=== PATIENT | male | born 1960 | race Caucasian/White ===

== ENCOUNTER 2019-02-03 23:03 | Emergency (ER) | payer MEDICAID, OTHER ==
[~2019-02-03] VITALS: Ht 190.5 cm; Wt 100.0 kg
[2019-02-04 05:55] VITALS: BP 132/60
== END 2019-02-04 05:56 | disposition home or self-care (01) ==
LOC: ER 23:03
DX: F10.129 Alcohol abuse with intoxication, unspecified (principal); Y90.9 Presence of alcohol in blood, level not specified; Z88.0 Allergy status to penicillin
CPT/HCPCS: 99283

== ENCOUNTER 2019-05-28 04:16 | Inpatient (IN) | payer MEDICARE, MEDICAID ==
[~2019-05-28] VITALS: Ht 190.5 cm; Wt 86.6 kg
[2019-05-28] MEDS ORDERED: SODIUM CHLORIDE 0.9% 1,000 ML IV ONE (05:00)
[2019-05-28 05:25] LABS: BASOPHILS % 1.1 % (0.0-2.0); EOSINOPHILS % 5.1 % (0.0-5.0); HEMATOCRIT. 37.7 % (42.0-52.0); HEMOGLOBIN. 12.4 g/dL (14.0-18.0); LYMPHOCYTES % 36.5 % (20.0-50.0); MEAN CORPUSCULAR HEMOGLOBIN 26.4 pg (28.0-32.0); MEAN CORPUSCULAR VOLUME 80.2 fL (80.0-94.0); MEAN PLATELET VOLUME 7.5 fl (7.4-10.4); MONOCYTES % 1.6 % (2.0-8.0); NEUTROPHILS % 55.7 % (40.0-76.0); PLATELET 308 x1000/uL (130-400); RED BLOOD CELL COUNT 4.71 mill/uL (4.7-6.1); RED CELL DISTRIBUTION WIDTH 18.6 % (11.6-14.6)
[2019-05-28 06:21] LABS: CHLORIDE 109 mEq/L (98-107)
[2019-05-28 06:26] LABS: ETHANOL BLOOD 143 mg/dL
[2019-05-28] MEDS ORDERED: MAGNESIUM 2 G PREMIX 50 ML IV ONE (07:15)
[2019-05-28] MEDS ORDERED: CALCIUM GLUCONATE 100MG/ML 10ML VIAL IV NR (07:15)
[2019-05-28] MEDS ORDERED: POTASSIUM CHLORIDE 20MEQ TABLET SR PO ONE (07:15)
[2019-05-28] MEDS ORDERED: SODIUM CHL 0.9% + KCL 20MEQ/L 1,000 ML IV SCH (07:15)
[2019-05-28] MEDS ORDERED: ONDANSETRON HCL 4MG/2ML INJ IV STA (07:56)
[2019-05-28] MEDS ORDERED: CLONIDINE 0.1MG TABLET PO PRN (16:45)
[2019-05-28] MEDS ORDERED: MVI, ADULT NO.1 10 ML, FOLIC ACID 1 MG, THIAMINE HCL 100 MG in SODIUM CHLORIDE 0.9% 1,0... IV SCH ×4 (16:45)
[2019-05-28] MEDS: ENOXAPARIN 40MG/0.4ML SYR SUBCUT SCH (18:13)
[2019-05-28 21:57] LABS: CLARITY URINE CLEAR (CLEAR); COLOR URINE YELLOW (YELLOW); KETONES URINE NEGATIVE (NEGATIVE); LEUKOCYTE ESTERASE URINE NEGATIVE (NEGATIVE); NITRITE URINE NEGATIVE (NEGATIVE); OCCULT BLOOD URINE NEGATIVE (NEGATIVE); PH URINE 5.5 (4.5-8.0); PROTEIN URINE 2+ (NEGATIVE); SPECIFIC GRAVITY URINE 1.023 (1.005-1.030); UROBILINOGEN URINE 0.2 E.U./dL (0.2-1.0)
[2019-05-28 22:13] LABS: *AMPHETAMINES SCREEN URINE NEGATIVE (NEGATIVE); *BARBITURATES SCREEN URINE NEGATIVE (NEGATIVE); *BENZODIAZEPINES SCREEN URINE NEGATIVE (NEGATIVE); *COCAINE SCREEN URINE NEGATIVE (NEGATIVE); METHADONE URINE SCREEN NEGATIVE (NEGATIVE); OPIATES URINE SCREEN PRESUMTIVE POSITIVE (NEGATIVE)
[2019-05-28 22:14] LABS: CANNABINOID URINE SCREEN NEGATIVE (NEGATIVE); PHENCYCLIDINE URINE SCREEN NEGATIVE (NEGATIVE)
[2019-05-29 06:51] LABS: BASOPHILS % 0.6 % (0.0-2.0); EOSINOPHILS % 6.2 % (0.0-5.0); HEMATOCRIT. 33.4 % (42.0-52.0); LYMPHOCYTES % 23.9 % (20.0-50.0); MEAN CORPUSCULAR HEMOGLOBIN 26.2 pg (28.0-32.0); MEAN CORPUSCULAR VOLUME 79.5 fL (80.0-94.0); MEAN PLATELET VOLUME 7.4 fl (7.4-10.4); MONOCYTES % 2.5 % (2.0-8.0); NEUTROPHILS % 66.8 % (40.0-76.0); PLATELET 181 x1000/uL (130-400); RED CELL DISTRIBUTION WIDTH 18.4 % (11.6-14.6)
[2019-05-29 07:00] LABS: CHLORIDE 100 mEq/L (98-107)
[2019-05-29 07:11] LABS: LDL CHOLESTEROL 86 mg/dL (5-100)
[2019-05-29 07:12] LABS: HDL CHOLESTEROL 77 mg/dL (40-59); T4 FREE 1.37 ng/dL (0.76-1.46)
[2019-05-29] MEDS: ACETAMINOPHEN 325MG TABLET PO PRN (11:51)
[2019-05-29] MEDS: ENOXAPARIN 40MG/0.4ML SYR SUBCUT SCH (17:59)
[2019-05-29] MEDS ORDERED: DIPHENHYDRAMINE 50MG/ML VIAL IV SCH (21:45)
[2019-05-30 06:25] LABS: BASOPHILS % 0.9 % (0.0-2.0); EOSINOPHILS % 5.9 % (0.0-5.0); HEMATOCRIT. 31.1 % (42.0-52.0); HEMOGLOBIN. 10.4 g/dL (14.0-18.0); LYMPHOCYTES % 28.2 % (20.0-50.0); MEAN CORPUSCULAR HEMOGLOBIN 26.5 pg (28.0-32.0); MEAN CORPUSCULAR VOLUME 78.9 fL (80.0-94.0); MEAN PLATELET VOLUME 7.4 fl (7.4-10.4); MONOCYTES % 3.7 % (2.0-8.0); NEUTROPHILS % 61.3 % (40.0-76.0); PLATELET 161 x1000/uL (130-400); RED BLOOD CELL COUNT 3.94 mill/uL (4.7-6.1); RED CELL DISTRIBUTION WIDTH 18.4 % (11.6-14.6)
[2019-05-30 06:29] LABS: CHLORIDE 101 mEq/L (98-107)
[2019-05-30] MEDS: ENOXAPARIN 40MG/0.4ML SYR SUBCUT SCH (18:28)
[2019-05-31 10:30] VITALS: BP 132/72
[2019-05-31 12:00] VITALS: BP_SYST 120; BP_SYST 125; BP_DIAS 70; BP_DIAS 77
[2019-05-31] MEDS: TAMSULOSIN HCL 0.4MG SR CAPSULE PO SCH (13:45)
[2019-05-31 16:00] VITALS: BP 120/70
[2019-05-31] MEDS: ENOXAPARIN 40MG/0.4ML SYR SUBCUT SCH (18:16)
[2019-05-31] MEDS: ONDANSETRON HCL 4MG/2ML INJ IV PRN (18:21)
[2019-05-31 20:00] VITALS: BP 121/81
[2019-05-31] MEDS: DIPHENHYDRAMINE 25MG CAPSULE PO PRN (21:32)
[2019-05-31] MEDS: ACETAMINOPHEN 325MG TABLET PO PRN (21:41)
[2019-06-01] VITALS: BP 146/78
[2019-06-01 04:00] VITALS: BP 134/79
[2019-06-01 08:10] VITALS: BP 113/68
[2019-06-01] MEDS: ONDANSETRON HCL 4MG/2ML INJ IV PRN (08:48)
[2019-06-01] MEDS: ACETAMINOPHEN 325MG TABLET PO PRN ×2 (08:55→19:02)
[2019-06-01] MEDS: TAMSULOSIN HCL 0.4MG SR CAPSULE PO SCH (08:57)
[2019-06-01 12:00] VITALS: BP 124/79
[2019-06-01 16:23] VITALS: BP 129/82
[2019-06-01] MEDS: ENOXAPARIN 40MG/0.4ML SYR SUBCUT SCH (18:00)
[2019-06-01 20:00] VITALS: BP 116/69
[2019-06-01] MEDS: DIPHENHYDRAMINE 25MG CAPSULE PO PRN (21:22)
[2019-06-02] VITALS (7 sets, daily range): BP systolic 114–144; BP diastolic 67–88
[2019-06-02] MEDS: TAMSULOSIN HCL 0.4MG SR CAPSULE PO SCH (08:55)
[2019-06-02] MEDS ORDERED: LOPERAMIDE HCL 2MG CAPSULE PO NR (11:30)
[2019-06-02 12:44] LABS: BASOPHILS % 0.5 % (0.0-2.0); EOSINOPHILS % 4.4 % (0.0-5.0); HEMOGLOBIN. 11.6 g/dL (14.0-18.0); MEAN CORPUSCULAR HEMOGLOBIN 26.4 pg (28.0-32.0); MEAN CORPUSCULAR VOLUME 79.4 fL (80.0-94.0); MONOCYTES % 6.6 % (2.0-8.0); NEUTROPHILS % 63.5 % (40.0-76.0); PLATELET 192 x1000/uL (130-400); RED BLOOD CELL COUNT 4.41 mill/uL (4.7-6.1); RED CELL DISTRIBUTION WIDTH 18.2 % (11.6-14.6)
[2019-06-02 13:04] LABS: CHLORIDE 102 mEq/L (98-107)
[2019-06-02] MEDS ORDERED: IMOD MT (13:19)
[2019-06-02] MEDS: METRONIDAZOLE 500MG TABLET PO SCH ×2 (13:48→22:16)
[2019-06-02] MEDS ORDERED: SODIUM CHLORIDE 0.9% 1,000 ML IV ONE (15:15)
[2019-06-02] MEDS: ENOXAPARIN 40MG/0.4ML SYR SUBCUT SCH (18:06)
[2019-06-02] MEDS: DIPHENHYDRAMINE 25MG CAPSULE PO PRN (22:17)
[2019-06-02] MEDS: METOPROLOL TARTRATE 50MG TABLET PO SCH (22:17)
[2019-06-03] VITALS: BP 117/73
[2019-06-03] MEDS: ACETAMINOPHEN 325MG TABLET PO PRN (03:20)
[2019-06-03 04:00] VITALS: BP 124/78
[2019-06-03] MEDS: METRONIDAZOLE 500MG TABLET PO SCH ×2 (06:18→13:40)
[2019-06-03 08:17] VITALS: BP 119/64
[2019-06-03] MEDS: TAMSULOSIN HCL 0.4MG SR CAPSULE PO SCH (09:03)
[2019-06-03] MEDS: METOPROLOL TARTRATE 50MG TABLET PO SCH (09:03)
[2019-06-03 11:56] VITALS: BP 122/77
[2019-06-03 15:47] VITALS: BP 120/76
== END 2019-06-03 16:35 | disposition home or self-care (01) | DRG 817 ==
LOC: ER 04:16 → 6WST 15:16 → ENRESERV 05-31 09:35
PROVIDERS: ADMIT Internal Medicine; ATTEND Internal Medicine
DX: T40.602A Poisoning by unspecified narcotics, intentional self-harm, initial encounter (principal); C79.9 Secondary malignant neoplasm of unspecified site; E87.8 Other disorders of electrolyte and fluid balance, not elsewhere classified; R45.851 Suicidal ideations; E44.0 Moderate protein-calorie malnutrition; F11.20 Opioid dependence, uncomplicated; C18.9 Malignant neoplasm of colon, unspecified; D64.9 Anemia, unspecified; K76.0 Fatty (change of) liver, not elsewhere classified; F10.10 Alcohol abuse, uncomplicated; R19.7 Diarrhea, unspecified; E87.6 Hypokalemia; N40.0 Benign prostatic hyperplasia without lower urinary tract symptoms; Z95.828 Presence of other vascular implants and grafts; Z86.711 Personal history of pulmonary embolism; Z86.718 Personal history of other venous thrombosis and embolism; Z85.038 Personal history of other malignant neoplasm of large intestine; Z88.0 Allergy status to penicillin; Y92.89 Other specified places as the place of occurrence of the external cause
CPT/HCPCS: 36415; 71250; 74018; 74176; 80048; 80053; 80061; 80305; 80307; 80320; 80329; 81003; 82140; 83735; 84439; 84443; 85025; 93005; 99285; J0610; J1200; J1650; J2405; J3411; J3475; J3480; J3490; J7030; Q0163; G0480